=== PATIENT | female | born 1985 | race Caucasian/White ===

== ENCOUNTER → 2016-08-13 | Outpatient (CLI) | payer OTHER ==
[~2016-08-13] MED LIST: ACET325 PO; ADVI200T PO; MAXA10TA2 PO
[2016-08-13 15:49] LABS: AUTOMATED NEUTROPHIL # 7.9 TH/MM3 (1.8-7.7); BASOPHIL % 0.2 % (0.0-2.0); BICARBONATE 27.6 MEQ/L (21.0-32.0); EOSINOPHIL % 0.1 % (0.0-4.0); HEMATOCRIT 39.1 % (35.0-46.0); HEMO FLAGS DIFF FINAL; LYMPH % 14.8 % (9.0-44.0); LYMPHOCYTE # 1.5 TH/MM3 (1.0-4.8); MEAN CELL VOLUME 85.6 FL (80.0-100.0); MEAN CORPUSCULAR HEMOGLOBIN 28.6 PG (27.0-34.0); MEAN CORPUSCULAR HGB CONC 33.5 % (32.0-36.0); MONO % 6.1 % (0.0-8.0); NEUT % 78.8 % (16.0-70.0); PLATELET COUNT 269 TH/MM3 (150-450); POTASSIUM 3.4 MEQ/L (3.5-5.1); RED BLOOD COUNT 4.57 MIL/MM3 (4.00-5.30)
== END ==
LOC: PLAB 12:03
PROVIDERS: ATTEND Family Medicine
DX: I10 Essential (primary) hypertension (principal); F32.9 Major depressive disorder, single episode, unspecified; R53.83 Other fatigue; Z68.34 Body mass index [BMI] 34.0-34.9, adult
CPT/HCPCS: 80048; 82306; 84443; 85025

== ENCOUNTER 2017-05-05 18:39 | Emergency (ER) | payer OTHER ==
[~2017-05-05] VITALS: Ht 165.1 cm; Wt 101.7 kg
[~2017-05-05 18:39] MED LIST changes: +HYDR25TA5 PO; +LORA0.5T PO; +VENL37.5 PO
[2017-05-05 18:44] VITALS: BP 140/94; PULSE 114; RESP 20; TEMP 99.1; O2SAT 99
[2017-05-05] MEDS ORDERED: SODIUM CHLOR 0.9% 1000 ML INJ 1,000 ML IV SCH (18:57)
[2017-05-05] MEDS ORDERED: TRAZ50TA12 PO (18:58)
[2017-05-05] MEDS ORDERED: KETOROLAC TROMETHAMINE 30 MG/ML (IVP) VIAL IV PUSH ONE (19:00)
[2017-05-05] MEDS ORDERED: METOCLOPRAMIDE HCL 10 MG/2 ML VIAL IV PUSH ONE (19:00)
[2017-05-05] MEDS ORDERED: SODIUM CHLORIDE 0.9% FLUSH 10 ML FLUSH IV FLUSH PRN (19:00)
[2017-05-05 19:10] VITALS: BP 169/80; PULSE 100; RESP 18; O2SAT 98
--- NOTE | 2017-05-05 19:16 | PD ---
HPI Chief Complaint: Cold / Flu Symptoms Time Seen by Provider: 18:53 Travel History International Travel<30 days: No Contact w/Intl Traveler<30days: No Traveled to known affect area: No History of Present Illness HPI 32-year-old female here for evaluation of generalized malaise, fever, URI symptoms, generalized body aches. The patient reports that the symptoms have been on for last 3 days. She was seen by her primary care physician Dr. Westbrook's PA yesterday and reports a negative flu study. She was told that she has a virus and was given cough medication. She took ibuprofen about 4 hours ago. She complains of a frontal headache as well as sinus pressure which she rates as moderate, described as pressure. No neck pain or stiffness. Cough is productive of greenish sputum. She has had nausea and a few episodes of vomiting. No diarrhea. Mild epigastric discomfort. PFSH Past Medical History Asthma: Yes Anxiety: Yes Depression: Yes Cardiovascular Problems: Yes (HTN) Diminished Hearing: No Hypertension: Yes Respiratory: Yes (ASTHMA) Immunizations Current: Yes Influenza Vaccination: Yes ?: Not LMP: 5 YEARS - HAS iud : 4 Para: 2 Miscarriage: 2 Past Surgical History Appendectomy: Yes Section: Yes (x2) Social History Alcohol Use: Yes (3-4 GLASSES WINE PER WEEK) Tobacco Use: No Substance Use: No Allergies-Medications (Allergen,Severity, Reaction): Coded Allergies: No Known Allergies (Verified Adverse Reaction, Unknown, 05/05/17) Reported Meds & Prescriptions Reported Meds & Active Scripts Active Reported Trazodone (Trazodone HCl) 50 Mg Tab 50 Mg PO HS Lorazepam 0.5 Mg Tab 0.5 Mg PO Q8H PRN Hydrochlorothiazide 25 Mg Tab 25 Mg PO DAILY Effexor (Venlafaxine HCl) 37.5 Mg Tab 37.5 Mg PO DAILY Review of Systems Except as stated in HPI: all other systems reviewed are Neg Physical Exam Narrative GENERAL: Well-developed, well-nourished, comfortable, no apparent distress. SKIN: Focused skin assessment warm/dry. No rash. HEAD: Atraumatic. Normocephalic. EYES: Pupils equal and round. No scleral icterus. No injection or drainage. ENT: No nasal bleeding or discharge. Mucous membranes pink and dry. Pharynx with mild erythema without exudates. Bilateral tympanic membranes and external auditory canals are normal. NECK: Trachea midline. No JVD. No nuchal rigidity. CARDIOVASCULAR: Tachycardic, rate 110, regular. RESPIRATORY: No accessory muscle use. Clear to auscultation. Breath sounds equal bilaterally. GASTROINTESTINAL: Abdomen soft, non-tender, nondistended. Normal bowel sounds. MUSCULOSKELETAL: No obvious deformities. No clubbing. No cyanosis. No edema. NEUROLOGICAL: Awake and alert. No obvious cranial nerve deficits. Motor grossly within normal limits. Normal speech. PSYCHIATRIC: Appropriate mood and affect; insight and judgment normal. Data Data Last Documented VS Vital Signs Date Time Temp Pulse Resp B/P (MAP) Pulse Ox O2 Delivery O2 Flow Rate FiO2 05/05/17 20:35 84 16 124/76 (92) 99 Room Air 05/05/17 18:44 99.1 Orders Orders Complete Blood Count With Diff (05/05/17 18:57) Comprehensive Metabolic Panel (05/05/17 18:57) Lipase (05/05/17 18:57) Urinalysis - C+S If Indicated (05/05/17 18:57) Iv Access Insert/Monitor (05/05/17 18:57) Ecg Monitoring (05/05/17 18:57) Oximetry (05/05/17 18:57) Sodium Chlor 0.9% 1000 Ml Inj (Ns 1000 M (05/05/17 18:57) Sodium Chloride 0.9% Flush (Ns Flush) (05/05/17 19:00) Ed Urine Pregnancytest Poc (05/05/17 18:57) Metoclopramide Inj (Reglan Inj) (05/05/17 19:00) Ketorolac Inj (Toradol Inj) (05/05/17 19:00) Chest, Single Ap (05/05/17 ) Group A Rapid Strep Screen (05/05/17 19:56) Influenzae A/B Antigen (05/05/17 19:56) Sodium Chlor 0.9% 1000 Ml Inj (Ns 1000 M (05/05/17 20:30) Acetaminophen (Tylenol) (05/05/17 20:30) Strep Culture (Group A) (05/05/17 20:05) Labs Laboratory Tests Test 05/05/17 19:15 White Blood Count 10.4 TH/MM3 Red Blood Count 5.17 MIL/MM3 Hemoglobin 14.6 GM/DL Hematocrit 44.9 % Mean Corpuscular Volume 86.9 FL Mean Corpuscular Hemoglobin 28.3 PG Mean Corpuscular Hemoglobin Concent 32.6 % Red Cell Distribution Width 12.9 % Platelet Count 413 TH/MM3 Mean Platelet Volume 7.8 FL Neutrophils (%) (Auto) 70.7 % Lymphocytes (%) (Auto) 19.9 % Monocytes (%) (Auto) 7.3 % Eosinophils (%) (Auto) 1.8 % Basophils (%) (Auto) 0.3 % Neutrophils # (Auto) 7.3 TH/MM3 Lymphocytes # (Auto) 2.1 TH/MM3 Monocytes # (Auto) 0.8 TH/MM3 Eosinophils # (Auto) 0.2 TH/MM3 Basophils # (Auto) 0.0 TH/MM3 CBC Comment DIFF FINAL Differential Comment Urine Color YELLOW Urine Turbidity CLEAR Urine pH 6.0 Urine Specific [place] 1.016 Urine Protein NEG mg/dL Urine Glucose (UA) NEG mg/dL Urine Ketones NEG mg/dL Urine Occult Blood MOD Urine Nitrite NEG Urine Bilirubin NEG Urine Leukocyte Esterase NEG Urine RBC 0-3 /hpf Urine Squamous Epithelial Cells 0-5 /hpf Microscopic Urinalysis Comment CULT NOT INDICATED Blood Urea Nitrogen 12 MG/DL Creatinine 0.83 MG/DL Random Glucose 100 MG/DL Total Protein 8.4 GM/DL Albumin 3.5 GM/DL Calcium Level 9.2 MG/DL Alkaline Phosphatase 125 U/L Aspartate Amino Transf (AST/SGOT) 10 U/L Alanine Aminotransferase (ALT/SGPT) 22 U/L Total Bilirubin 0.3 MG/DL Sodium Level 135 MEQ/L Potassium Level 3.5 MEQ/L Chloride Level 101 MEQ/L Carbon Dioxide Level 27.1 MEQ/L Anion Gap 7 MEQ/L Estimat Glomerular Filtration Rate 80 ML/MIN Lipase 135 U/L [facility] Medical Decision Making Medical Screen Exam Complete: Yes Emergency Medical Condition: Yes Differential Diagnosis Influenza, viral illness, URI, pneumonia, dehydration, SAH/meningitis/ encephalitis unlikely Narrative Course Initial vital signs show heart rate 114, blood pressure 140/94, pulse ox 99% on room air, oral temp of 99.1F. HR improved to 83 after a liter of NS IV. CBC is essentially unremarkable. CMP is essentially unremarkable. Lipase is 135. UA shows moderate occult blood, not suggestive of UTI. Influenza is negative Group A strep is negative Chest x-ray: No acute disease. Patient was given a liter normal saline IV, IV Reglan, and IV Toradol, and on reassessment she is feeling significantly improved. Abdominal exam shows no tenderness and I do not believe that there is an acute surgical process to warrant imaging. She is likely suffering from a viral URI and at this point she is stable for discharge home with outpatient follow-up with her primary care physician this week. I advised that she stay well hydrated with plenty of fluids and to take Tylenol/ibuprofen for pain/fever. She was informed on when to return to the emergency department. She verbalizes understanding and agreement with plan. Diagnosis Primary Impression: Viral URI Referrals: Primary Care Physician 3 days Additional Instructions: Follow-up with your primary care physician this week. Stay hydrated with plenty of fluids. Take Tylenol/ibuprofen for pain/fever. Return to the emergency department for worsening symptoms or any other concerns. Scripts Ondansetron Odt (Zofran Odt) 4 Mg Tab 4 MG SL Q8HR Y for Nausea/Vomiting, #30 TAB 0 Refills Prov: Thomas Stern MD 05/05/17 Disposition: DISCHARGE HOME Condition: Stable Thomas Stern MD May 05, 2017 19:16
[2017-05-05 19:34] LABS: AUTOMATED NEUTROPHIL # 7.3 TH/MM3 (1.8-7.7); BASOPHIL % 0.3 % (0.0-2.0); EOSINOPHIL # 0.2 TH/MM3 (0-0.4); EOSINOPHIL % 1.8 % (0.0-4.0); HEMATOCRIT 44.9 % (35.0-46.0); HEMOGLOBIN 14.6 GM/DL (11.6-15.3); LYMPH % 19.9 % (9.0-44.0); LYMPHOCYTE # 2.1 TH/MM3 (1.0-4.8); MEAN CELL VOLUME 86.9 FL (80.0-100.0); MEAN CORPUSCULAR HEMOGLOBIN 28.3 PG (27.0-34.0); MEAN CORPUSCULAR HGB CONC 32.6 % (32.0-36.0); MEAN PLATELET VOLUME 7.8 FL (7.0-11.0); MONO % 7.3 % (0.0-8.0); MONOCYTE # 0.8 TH/MM3 (0-0.9); NEUT % 70.7 % (16.0-70.0); PLATELET COUNT 413 TH/MM3 (150-450); RED BLOOD COUNT 5.17 MIL/MM3 (4.00-5.30); RED CELL DISTRIBUTION WIDTH 12.9 % (11.6-17.2); WHITE BLOOD COUNT 10.4 TH/MM3 (4.0-11.0)
[2017-05-05 19:41] LABS: BILIRUBIN, URINE NEG (NEG); BLOOD, URINE MOD (NEG); GLUCOSE,URINE NEG (NEG); KETONE, URINE NEG (NEG); NITRITE,URINE NEG (NEG); URINE LEUKOCYTE ESTERASE NEG (NEG)
[2017-05-05 19:45] LABS: CHLORIDE 101 MEQ/L (98-107); RBC, URINE 0-3 /hpf (0-3); SODIUM (NA) 135 MEQ/L (136-145); SQUAMOUS EPITHELIAL CELL URINE 0-5 /hpf (0-5); URINE COLOR YELLOW (YELLW/STRAW)
[2017-05-05 19:48] LABS: CALCIUM 9.2 MG/DL (8.5-10.1)
[2017-05-05 19:49] LABS: ALBUMIN 3.5 GM/DL (3.4-5.0); BICARBONATE 27.1 MEQ/L (21.0-32.0); BLOOD UREA NITROGEN 12 MG/DL (7-18); GLUCOSE,RANDOM 100 MG/DL (74-106); LIPASE 135 U/L (73-393)
[2017-05-05 19:51] LABS: ALT (GPT) 22 U/L (10-53); AST (GOT) 10 U/L (15-37); CREATININE 0.83 MG/DL (0.50-1.00); GLOMERULAR FILTRATION RATE 80 ML/MIN (>89)
[2017-05-05 19:53] LABS: TOTAL BILIRUBIN ADULT 0.3 MG/DL (0.2-1.0); TOTAL PROTEIN 8.4 GM/DL (6.4-8.2)
[2017-05-05 19:54] LABS: ALKALINE PHOSPHATASE 125 U/L (45-117)
--- NOTE | 2017-05-05 20:15 | RADRPT ---
EXAM DATE/TIME: 05/05/2017 19:37 [facility] COMPARISON: No previous studies available for comparison. INDICATIONS : Short of breath, cough and vomiting. MEDICAL HISTORY : Hypertension. Asthma SURGICAL HISTORY : Appendectomy. ENCOUNTER: Initial ACUITY: 3 days PAIN SCORE: 0/10 LOCATION: Bilateral chest FINDINGS: A single view of the chest demonstrates the lungs to be symmetrically aerated without evidence of mas s, infiltrate or effusion. The cardiomediastinal contours are unremarkable. Osseous structures are intact. CONCLUSION: No acute disease. James Parker MD on May 05, 2017 at 20:13 Board Certified Radiologist. This report was verified electronically.
[2017-05-05] MEDS ORDERED: ACETAMINOPHEN 325 MG TAB PO ONE (20:30)
[2017-05-05] MEDS ORDERED: SODIUM CHLOR 0.9% 1000 ML INJ 1,000 ML IV ONE (20:30)
[2017-05-05 20:35] VITALS: BP 124/76; PULSE 84; RESP 16; O2SAT 99
[2017-05-05] MEDS ORDERED: ZOFR4TAB3 SL (20:55)
== END 2017-05-05 21:15 | disposition home or self-care (01) ==
LOC: PHED 18:39 → MERGE 18:39 → PHED 21:15
DX: J06.9 Acute upper respiratory infection, unspecified (principal); B97.89 Other viral agents as the cause of diseases classified elsewhere; R50.9 Fever, unspecified; M79.1 Myalgia; R05 Cough; R09.3 Abnormal sputum; R11.2 Nausea with vomiting, unspecified; R10.13 Epigastric pain; I10 Essential (primary) hypertension; F41.8 Other specified anxiety disorders; Z87.09 Personal history of other diseases of the respiratory system
CPT/HCPCS: 71010; 80053; 81001; 83690; 84703; 85025; 87081; 87804; 87880; 96361; 96374; 96375; 99284; J1885; J2765; J7030

== ENCOUNTER 2017-05-07 13:39 | Emergency (ER) | payer OTHER ==
[~2017-05-07] VITALS: Ht 165.1 cm; Wt 101.0 kg
[~2017-05-07 13:39] MED LIST changes: +TRAZ50TA12 PO; +ZOFR4TAB3 SL
[2017-05-07 13:41] VITALS: BP 175/100; PULSE 93; RESP 16; TEMP 98.4; O2SAT 98
--- NOTE | 2017-05-07 14:19 | PD ---
HPI Chief Complaint: Cold / Flu Symptoms Time Seen by Provider: 13:53 Travel History International Travel<30 days: No Contact w/Intl Traveler<30days: No Traveled to known affect area: No History of Present Illness HPI 32-year-old female presents to the emergency department complaining of 4 days of "flulike symptoms", clear rhinorrhea, moderate headache, neck pain, back pain. States that she has had nausea with approximate 5 episodes of nonbloody vomiting. Denies diarrhea. Says she's been able tolerate fluids yesterday and today. She's been seen by her primary care physician, Dr. Westbrook and she was diagnosed with a viral syndrome. States that she was no better so Dr. Westbrook told to go to the emergency department where she was diagnosed with a viral upper respiratory infection 2 days ago. Patient called her doctor today and told her to go to the emergency department for workup of meningitis and respiratory panel. PFSH Past Medical History Asthma: Yes Anxiety: Yes Depression: Yes Cardiovascular Problems: Yes (HTN) Diminished Hearing: No Hypertension: Yes Respiratory: Yes (ASTHMA) Immunizations Current: Yes ?: Not : 4 Para: 2 Miscarriage: 2 Past Surgical History Appendectomy: Yes Section: Yes (x2) Social History Alcohol Use: Yes (3-4 GLASSES WINE PER WEEK) Tobacco Use: No Substance Use: No Allergies-Medications (Allergen,Severity, Reaction): Coded Allergies: No Known Allergies (Verified Adverse Reaction, Unknown, 05/07/17) Reported Meds & Prescriptions Reported Meds & Active Scripts Active Hydrocodone-Acetaminophen 5-325 mg Tab 1 Tab PO Q6H PRN 3 Days Reported Trazodone (Trazodone HCl) 50 Mg Tab 50 Mg PO HS Lorazepam 0.5 Mg Tab 0.5 Mg PO Q8H PRN Hydrochlorothiazide 25 Mg Tab 25 Mg PO DAILY Effexor (Venlafaxine HCl) 37.5 Mg Tab 37.5 Mg PO DAILY Review of Systems Except as stated in HPI: all other systems reviewed are Neg Physical Exam Narrative GENERAL: Well-developed well-nourished in mild distress SKIN: Warm and dry. HEAD: Atraumatic. Normocephalic. EYES: Pupils equal and round. No scleral icterus. No injection or drainage. ENT: No nasal bleeding or discharge. Mucous membranes pink and moist. THROAT: mild pharyngeal injection. No exudates or tonsillar hypertrophy. Airway is patent. NECK: Trachea midline. No JVD. Mild TTP to neck. No meningismus CARDIOVASCULAR: Regular rate and rhythm. RESPIRATORY: No accessory muscle use. Clear to auscultation. Breath sounds equal bilaterally. GASTROINTESTINAL: Abdomen soft, non-tender, nondistended. Hepatic and splenic margins not palpable. MUSCULOSKELETAL: Extremities without clubbing, cyanosis, or edema. No obvious deformities. NEUROLOGICAL: Awake and alert. No obvious cranial nerve deficits. Motor grossly within normal limits. Five out of 5 muscle strength in the arms and legs. Normal speech. PSYCHIATRIC: Appropriate mood and affect; insight and judgment normal. Data Data Last Documented VS Vital Signs Date Time Temp Pulse Resp B/P (MAP) Pulse Ox O2 Delivery O2 Flow Rate FiO2 05/07/17 13:41 98.4 93 16 175/100 (125) 98 Orders Orders Complete Blood Count With Diff (05/07/17 14:05) Comprehensive Metabolic Panel (05/07/17 14:22) Influenzae A/B Antigen (05/07/17 14:56) Respiratory Syncytial Virus (05/07/17 14:56) Ed Discharge Order (05/07/17 15:26) Labs Laboratory Tests Test 05/07/17 14:50 White Blood Count 8.2 TH/MM3 Red Blood Count 4.68 MIL/MM3 Hemoglobin 13.2 GM/DL Hematocrit 40.5 % Mean Corpuscular Volume 86.4 FL Mean Corpuscular Hemoglobin 28.2 PG Mean Corpuscular Hemoglobin Concent 32.6 % Red Cell Distribution Width 12.7 % Platelet Count 352 TH/MM3 Mean Platelet Volume 7.6 FL Neutrophils (%) (Auto) 68.3 % Lymphocytes (%) (Auto) 22.7 % Monocytes (%) (Auto) 7.5 % Eosinophils (%) (Auto) 1.1 % Basophils (%) (Auto) 0.4 % Neutrophils # (Auto) 5.6 TH/MM3 Lymphocytes # (Auto) 1.9 TH/MM3 Monocytes # (Auto) 0.6 TH/MM3 Eosinophils # (Auto) 0.1 TH/MM3 Basophils # (Auto) 0.0 TH/MM3 CBC Comment DIFF FINAL Differential Comment Blood Urea Nitrogen 10 MG/DL Creatinine 0.76 MG/DL Random Glucose 86 MG/DL Total Protein 7.9 GM/DL Albumin 3.4 GM/DL Calcium Level 9.0 MG/DL Alkaline Phosphatase 112 U/L Aspartate Amino Transf (AST/SGOT) 13 U/L Alanine Aminotransferase (ALT/SGPT) 18 U/L Total Bilirubin 0.3 MG/DL Sodium Level 138 MEQ/L Potassium Level 3.3 MEQ/L Chloride Level 102 MEQ/L Carbon Dioxide Level 30.2 MEQ/L Anion Gap 6 MEQ/L Estimat Glomerular Filtration Rate 89 ML/MIN MDM Medical Decision Making Medical Screen Exam Complete: Yes Emergency Medical Condition: Yes Differential Diagnosis Viral syndrome, influenza, meningitis, rhinovirus, adenovirus Narrative Course 32-year-old female presents to the emergency department complaining of 4 days of "flulike symptoms", clear rhinorrhea, moderate headache, neck pain, back pain. States that she has had nausea with approximately 5 episodes of nonbloody vomiting. Denies diarrhea. Says she's been able tolerate fluids the last 2 days. She's been seen by her primary care physician, Dr. Westbrook and she was diagnosed with a viral syndrome. States that she was no better so Dr. Westbrook told to go to the emergency department where she was diagnosed with a viral upper respiratory infection 2 days ago. Patient called her doctor today and told her to go to the emergency department for workup of meningitis and respiratory panel. Says she has had some mild photophobia as well. Denies fevers or chills. Denies rashes, abdominal pain. 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 Vital signs stable. Physical exam findings- diffuse mild tenderness to palpation of back and extremities consistent with bodyaches. No rashes. No meningismus. CBC & BMP Diagram 05/07/17 14:50 Total Protein 7.9, Albumin 3.4, Calcium Level 9.0, Alkaline Phosphatase 112, Aspartate Amino Transf (AST/SGOT) 13 L, Alanine Aminotransferase (ALT/SGPT) 18, Total Bilirubin 0.3 I discussed this case with my attending, Dr. Louis and asked him to evaluate this patient as well as her symptoms are concerning but I am not convinced this is meningitis. He also does not believe that patient had meningitis and did not warrant the risk of a lumbar puncture. Reassured patient. Advised to watch for signs of meningitis to include increased headache, neck pain, back pain, fever, rash. Patient states understanding and will comply. Advised she increase her fluid intake and have nutritious diet. Hydrocodone for outpatient use for pains. Advised follow-up with primary care physician within 2-3 days. Return to the emergency department for worsening or persistent symptoms. Diagnosis Primary Impression: Viral syndrome Referrals: Primary Care Physician Additional Instructions: Take all medication as prescribed. Follow-up a primary care physician within 2-3 days. If her symptoms persist or worsen return to the emergency department. Scripts Hydrocodone-Acetaminophen (Hydrocodone-Acetaminophen) 5-325 mg Tab 1 TAB PO Q6H Y for PAIN for 3 Days, #12 TAB 0 Refills Prov: Oni Louis MD 05/07/17 Disposition: 01 DISCHARGE HOME Condition: Stable Bre Larry May 07, 2017 14:19
[2017-05-07 15:00] LABS: AUTOMATED NEUTROPHIL # 5.6 TH/MM3 (1.8-7.7); BASOPHIL % 0.4 % (0.0-2.0); EOSINOPHIL # 0.1 TH/MM3 (0-0.4); EOSINOPHIL % 1.1 % (0.0-4.0); HEMATOCRIT 40.5 % (35.0-46.0); HEMOGLOBIN 13.2 GM/DL (11.6-15.3); LYMPH % 22.7 % (9.0-44.0); LYMPHOCYTE # 1.9 TH/MM3 (1.0-4.8); MEAN CELL VOLUME 86.4 FL (80.0-100.0); MEAN CORPUSCULAR HEMOGLOBIN 28.2 PG (27.0-34.0); MEAN CORPUSCULAR HGB CONC 32.6 % (32.0-36.0); MEAN PLATELET VOLUME 7.6 FL (7.0-11.0); MONO % 7.5 % (0.0-8.0); MONOCYTE # 0.6 TH/MM3 (0-0.9); NEUT % 68.3 % (16.0-70.0); PLATELET COUNT 352 TH/MM3 (150-450); RED BLOOD COUNT 4.68 MIL/MM3 (4.00-5.30); RED CELL DISTRIBUTION WIDTH 12.7 % (11.6-17.2); WHITE BLOOD COUNT 8.2 TH/MM3 (4.0-11.0)
[2017-05-07 15:08] LABS: CHLORIDE 102 MEQ/L (98-107); SODIUM (NA) 138 MEQ/L (136-145)
[2017-05-07 15:11] LABS: ALBUMIN 3.4 GM/DL (3.4-5.0); BICARBONATE 30.2 MEQ/L (21.0-32.0); GLUCOSE,RANDOM 86 MG/DL (74-106)
[2017-05-07 15:12] LABS: BLOOD UREA NITROGEN 10 MG/DL (7-18)
[2017-05-07 15:14] LABS: ALT (GPT) 18 U/L (10-53)
[2017-05-07 15:15] LABS: AST (GOT) 13 U/L (15-37); CREATININE 0.76 MG/DL (0.50-1.00); GLOMERULAR FILTRATION RATE 89 ML/MIN (>89)
[2017-05-07 15:16] LABS: TOTAL BILIRUBIN ADULT 0.3 MG/DL (0.2-1.0); TOTAL PROTEIN 7.9 GM/DL (6.4-8.2)
[2017-05-07 15:17] LABS: ALKALINE PHOSPHATASE 112 U/L (45-117)
[2017-05-07] MEDS ORDERED: HYDR-3516 PO (15:22)
== END 2017-05-07 15:37 | disposition home or self-care (01) ==
LOC: MERGE 13:39 → PHEFT 13:39
DX: B34.9 Viral infection, unspecified (principal); J34.89 Other specified disorders of nose and nasal sinuses; R51 Headache; M54.2 Cervicalgia; M54.9 Dorsalgia, unspecified; R11.2 Nausea with vomiting, unspecified; I10 Essential (primary) hypertension; F41.8 Other specified anxiety disorders; Z87.09 Personal history of other diseases of the respiratory system
CPT/HCPCS: 80053; 85025; 87420; 87804; 99283